=== PATIENT | male | born 1930 | race Caucasian/White ===

== ENCOUNTER 2016-06-09 12:43 | Emergency (ER) | payer OTHER, MEDICARE ==
[~2016-06-09] VITALS: Ht 175.3 cm; Wt 81.6 kg
--- NOTE | 2016-06-09 12:54 | ED AMS/SEIZURE/WEAK/DIZZY ---
History of Present Illness General Chief Complaint: Altered Mental Status Stated Complaint: CONFUSION,POOR PO INTAKE, HX DEMENTIA Source: patient, family (), EMS Exam Limitations: dementia Vital Signs & Intake/Output Vital Signs & Intake/Output Vital Signs Date Time Temp Pulse Resp B/P Pulse O2 O2 Flow FiO2 Ox Delivery Rate 06/09 1500 98.6 57 18 162/77 98 Room Air 06/09 1252 98.6 51 18 145/70 97 Room Air Allergies Coded Allergies: No Known Allergies (06/09/16) Reconcile Medications Amlodipine Besylate 5 MG TABLET 1 TAB PO DAILY HEART (Reported) Cholecalciferol (Vitamin D3) 1,000 UNIT TABLET 1 TAB PO DAILY SUPPLEMENT ( Reported) Finasteride 5 MG TABLET 1 TAB PO DAILY PROSTATE (Reported) Folic Acid 0.8 MG TABLET 1 TAB PO DAILY SUPPLEMENT (Reported) Niacin (Niaspan) 500 MG TAB.ER.24H 1 TAB PO DAILY HEART (Reported) Nitroglycerin (Nitroglycerin Patch) 0.4 MG/HOUR PATCH.TD24 1 PATCH TOP DAILY HEART (Reported) Raymond-3 Fatty Acids/Fish Oil (Fish Oil 1,000 MG Capsule) 340 MG-1,000 MG CAPSULE 1 CAP PO DAILY SUPPLEMENT (Reported) Omeprazole 20 MG CAPSULE.DR 1 CAP PO DAILY GI (Reported) Selenomethionine (Selenium) 200 MCG TABLET 1 TAB PO DAILY SUPPLEMENT ( Reported) Tamsulosin HCl 0.4 MG CAP.ER.24H 1 CAP PO DAILY PROSTATE (Reported) Vitamin B Complex (Balanced B-50) 1 EACH TABLET 1 TAB PO DAILY SUPPLEMENT ( Reported) Warfarin Sodium (Coumadin) 5 MG TABLET 1 TAB PO 1700 BLOOD THINNER (Reported) Triage Nurses Notes Reviewed? yes HPI: This patient is an 85-year-old male with a past medical history including coronary artery disease, thrombocytopenia, and dementia who presented to the emergency department today brought in by ambulance for evaluation of altered mental status and presyncope. The patient is a poor historian at baseline due to his underlying dementia. He reported that he is not in any pain and is offering no complaints. The patient's is at the bedside and reported that they were standing [place] [employer]. She reported, "he was wearing a lot of close and it was really electromedical service engineer there." She reported that he started staring off in the distance and wasn't really answering questions. She reported that people around him noticed and got him a chair to sit down. He did not fall or strike his head. He did not lose consciousness. The patient's reported that she got him a drink of water, thinking maybe his blood sugar was low. However, she did report that he does not have a history of low blood sugar. She reported a similar incident happened last week when he felt dizzy. At that time he did not stare blankly ahead or lose consciousness or strike his head. She reported that he is currently at his baseline mental status. The patient is denying any fevers, chills, chest pain, difficulty breathing, abdominal pain, vomiting, or any other associated symptoms. (DARRON BOBO PA-C) Past History Medical History Any Pertinent Medical History? see below for history Neurological: Alzheimer's disease, dementia Cardiovascular: CAD, CAROTID ARTERY STENOSIS Renal: RENAL CYST Blood Disorders: thrombocytopenia Surgical History Surgical History: CAROTIDENDARTERECTOMY, BYPASS SURGERY, STENT PLACEMENT AND HEART Family History Hx Contributory? No (DARRON BOBO PA-C) Review of Systems Review of Systems Constitutional: Reports: no symptoms. EENTM: Reports: no symptoms. Respiratory: Reports: no symptoms. Cardiovascular: Reports: no symptoms. GI: Reports: no symptoms. Genitourinary: Reports: no symptoms. Musculoskeletal: Reports: no symptoms. Skin: Reports: no symptoms. Neurological/Psychological: Reports: see HPI. All Other Systems: Reviewed and Negative (DARRON BOBO PA-C) Physical Exam Physical Exam General Appearance: well developed/nourished, no apparent distress, alert, awake Comments: Well-developed well-nourished person in no acute distress HEENT: Normal EENT exam, head normocephalic, moist mucous membranes PERRLA bilaterally Neck: Supple, no lymphadenopathy Back: No midline tenderness Cardiovascular: Regular rate and rhythm with no murmurs, rubs, or gallops. No carotid bruits appreciated. No JVD Respiratory: Chest nontender. No respiratory distress. Breath sounds clear to auscultation bilaterally with no wheezes, rales, or rhonchi Abdomen: Soft, nontender and nondistended. Large ventral abdominal hernia appreciated which is easily reducible. Extremity: No edema, no calf tenderness to palpation, normal and equal pulses. Neuro: Alert oriented to person only, cranial nerves II through XII grossly intact. No aphasia. No facial droop. No unilateral weakness Skin: No appreciable rash on exposed skin, skin is warm and dry. Psych: Mood and affect is normal Core Measures ACS in differential dx? Yes CVA/TIA Diagnosis: No Severe Sepsis Present: No Septic Shock Present: No (JERAMIE YAÑEZ,DARRON) Progress Differential Diagnosis: arrythmia, alcohol intoxication, anemia, benign positional vertigo, CVA/stroke, dehydration, drug intoxication, encephalitis, electrolyte imbalance, GI bleed, hypoglycemia, hypoxia, intracranial Hem., intracranial mass/tumor, pneumonia, postural hypotension, presyncope, sepsis, seizure disorder, subarachnoid Hem., UTI/pyelo, vertebrobasilar insuff Plan of Care: Orders Procedure Date/time Status CULTURE,URINE 06/09 1252 Active URINE DRUGS OF ABUSE 06/09 1252 Complete URINALYSIS 06/09 1252 Complete TROPONIN LEVEL 06/09 1252 Complete PROLACTIN 06/09 1252 Complete LACTIC ACID 06/09 1252 Complete COMPREHENSIVE METABOLIC PANEL 06/09 1252 Complete CBC WITHOUT DIFFERENTIAL 06/09 1252 Complete EKG 06/09 1252 Active Laboratory Tests 06/09/16 1552: Lactic Acid Cancelled 06/09/16 1407: Urine Opiates Screen < 100.00, Methadone Screen < 40, Barbiturate Screen < 60, Ur Phencyclidine Scrn < 6.00, Amphetamines Screen < 100, U Benzodiazepines Scrn < 85, Urine Cocaine Screen < 50, Urine Cannabis Screen < 5.00, Urine Color YEL, Urine Clarity CLEAR, Urine pH 6.0, Ur Specific [place] 1.015, Urine Protein 100 H, Urine Ketones NEG, Urine Nitrite NEG, Urine Bilirubin NEG, Urine Urobilinogen 0.2, Ur Leukocyte Esterase NEG, Ur Microscopic SEDIMENT EXAMINED, Urine RBC RARE , Urine WBC RARE, Ur Epithelial Cells RARE, Hyaline Casts RARE H, Granular Casts RARE H, Urine Mucus RARE, Urine Hemoglobin NEG, Urine Glucose NEG 06/09/16 1306: Anion Gap 6, Estimated GFR 52 L, BUN/Creatinine Ratio 21.5, Glucose 99, Lactic Acid 0.9, Calcium 9.0, Total Bilirubin 0.5, AST 23, ALT 23, Alkaline Phosphatase 44, Troponin I 0.01, Total Protein 6.7, Albumin 3.7, Globulin 3.0, Albumin/ Globulin Ratio 1.2, Prolactin 8.2, CBC w Diff NO MAN DIFF REQ, RBC 3.89 L, MCV 96.4 H, MCH 32.7 H, RDW 14.3, MPV 8.4, Gran % 71.9, Lymphocytes % 14.8 L, Monocytes % 9.9 H, Eosinophils % 3.3, Basophils % 0.1, Absolute Granulocytes 3.5, Absolute Lymphocytes 0.7 L, Absolute Monocytes 0.5, Absolute Eosinophils 0.2, Absolute Basophils 0, PUBS MCHC 33.9 Microbiology 06/09 1407 URINE ROUT: Urine Culture - RECD Diagnostic Imaging: Viewed by Me: Radiology Read, CT Scan. Discussed w/RAD: Radiology Read, CT Scan. Radiology Impression: PATIENT: ABRAM PAVON PRESENT AGE: 85 PATIENT ACCOUNT NO: [id number] : 30 LOCATION: [facility] ORDERING PHYSICIAN: DARRON BOBO PA-C SERVICE DATE: 06/09/16 EXAM TYPE: CAT - CT CERV SPINE WO IV CONTRAST; CT HEAD WO IV CONTRAST CT HEAD WITHOUT IV CONTRAST CT CERVICAL SPINE WITHOUT IV CONTRAST INDICATION: Altered mental status. COMPARISON: None available. TECHNIQUE: Multidetector CT acquisitions of the head and cervical spine were obtained without IV contrast. Multiplanar reformats were acquired and utilized for image interpretation. 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 Mineralization within the cerebellar white matter and globus pallidus bilaterally. There is global cerebral volume loss with a mesial temporal lobe predominance. Overall supratentorial ventricular size is greater than sulcal prominence and can be correlated for clinical signs of normal pressure hydrocephalus. Nonspecific extensive hypoattenuation within the supratentorial white matter that may reflect moderate to severe chronic microangiopathy with or without a component of transependymal CSF flow. There is no intracranial hemorrhage, hydrocephalus, extra-axial surface collection, midline shift, or other herniation pattern. Pate to white matter differentiation is diffusely maintained without evidence of an evolved acute territorial infarct. The basilar cisterns are preserved. No significant soft tissue abnormality. No acute osseous abnormality. There is mild mucosal thickening throughout the ethmoid air cells and within the sphenoid sinuses. Mastoid air cells are well-aerated. CERVICAL SPINE: There is grade 1 degenerative anterolisthesis of C5 on C6, C6 on C7, C7 on T1, and T1 on T2. Multilevel facet arthropathy. Disc spaces are preserved. There is no acute fracture and there is no acute subluxation. The craniocervical and atlantoaxial articulations are normal. There is no prevertebral soft tissue swelling. No significant soft tissue abnormality within the neck. Surgical clips adjacent to the left carotid bifurcation. Atherosclerotic calcification at the carotid bifurcations bilaterally. The visualized lung apices are clear. IMPRESSION: 1. No acute intracranial abnormality. Overall supratentorial ventricular size is greater than sulcal prominence and can be correlated for clinical signs of normal pressure hydrocephalus. There is global cerebral volume loss with a mesial temporal lobe predominance. Nonspecific extensive hypoattenuation within the supratentorial white matter that may reflect moderate to severe chronic microangiopathy with or without a component of transependymal CSF flow. 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 2. No acute osseous abnormality within the cervical spine. Multilevel cervical spondylosis. DICTATED BY: DELANO SHARP MD DATE/TIME DICTATED:1348 AIRPLANE ENGINEER:JOSE DAVID DATE/TIME TRANSCRIBED:06/09/161348 CONFIDENTIAL, DO NOT COPY WITHOUT APPROPRIATE AUTHORIZATION. <Electronically signed in Other Vendor System> SIGNED BY: DELANO SHARP MD 06/09/16 2717 CXR Impression: PATIENT: ABRAM PAVON PRESENT AGE: 85 PATIENT ACCOUNT NO: [id number] : 30 LOCATION: [facility] ORDERING PHYSICIAN: DARRON BOBO PA-C SERVICE DATE: 06/09/161252 EXAM TYPE: RAD - XRY-CHEST XRAY, PA AND LATERAL EXAMINATION: XR CHEST CLINICAL INFORMATION: Altered mental status. Evaluate for pneumonia. COMPARISON: None. TECHNIQUE: PA and lateral views of the chest were obtained. FINDINGS: Lungs are hypoinflated and right diaphragm slightly elevated. No acute pulmonary consolidation, interstitial infiltrate or pleural effusion. Cardiac silhouette is normal in size, status post CABG, with intact sternotomy wires in place. Thoracic aorta is calcified. There are old, healed fractures of several left posterolateral ribs. IMPRESSION: No acute cardiopulmonary findings. DICTATED BY: JR SANCHEZ MD DATE/TIME DICTATED:06/09/161417 AIRPLANE ENGINEER:HALE DATE/TIME TRANSCRIBED:06/09/168 CONFIDENTIAL, DO NOT COPY WITHOUT APPROPRIATE AUTHORIZATION. <Electronically signed in Other Vendor System> SIGNED BY: JR SANCHEZ MD 06/09/16 1428 Initial ED EKG: normal axis, normal intervals, normal sinus rhythm, nonspecific ST T wave chg, SINUS BRADYCARDIA, 55 BPM Comments: 06/09/2016 2:57:46 PM: Discussed this patient with Dr. Rosales. No increased white blood cell count. No elevation prolactin. Largely unremarkable CT scan of the head. No evidence of pneumonia on chest x-ray. No evidence of urinary tract infection. Likely presyncopal episode. Will hydrate this patient with fluids, do orthostatic vital signs, and ambulate this patient. If he is back to baseline, he will be stable for discharge home. 06/09/2016 4:46:50 PM: Patient ambulatory at baseline. Liter of IV fluids, has infused. Patient and spouse are looking to go home. Stable for discharge home at this time. Counseled the patient's and the importance of having him follow-up with his primary care physician and bring him back to the emergency department should she have any other concerns. (DARRON BOBO PA-C) Departure Departure Disposition: HOME OR SELF CARE Condition: Stable Clinical Impression Primary Impression: Pre-syncope Additional Instructions: Take all previously prescribed medications as directed. Be sure to stay hydrated with lots of fluids. Call to make a follow-up appointment with your primary care physician. Return to the emergency department for any worsening symptoms or concerns. Departure Forms: Customer Survey General Discharge Information (DARRON BOBO PA-C) PA/[employer] Co-Sign Statement Statement: ED Attending supervision documentation- [x] I saw and evaluated the patient. I have also reviewed all the pertinent lab results and diagnostic results. I agree with the findings and the plan of care as documented in the PA's/[employer]'s documentation. [x] I have reviewed the ED Record and agree with the PA's/[employer]'s documentation. [] Additions or exceptions (if any) to the PAs/[employer]'s note and plan are summarized below: [] (JOSE JOHN,KAN)
[2016-06-09 13:21] LABS: ABSOLUTE BASOPHIL COUNT 0 /CUMM (0.0-0.2); ABSOLUTE EOSINOPHIL COUNT 0.2 /CUMM (0.0-0.7); ABSOLUTE GRANULOCYTE CT 3.5 /CUMM (1.4-6.5); ABSOLUTE LYMPH COUNT 0.7 /CUMM (1.2-3.4); ABSOLUTE MONOCYTE COUNT 0.5 /CUMM (0.10-0.60); BASOPHIL % 0.1 % (0.0-2.0); EOSINOPHIL % 3.3 % (0-5); GRANULOCYTE % 71.9 % (42.2-75.2); HEMATOCRIT 37.5 % (42-52); MEAN CORPUSCULAR HGB 32.7 PG (27.0-31.0); MEAN CORPUSCULAR HGB CONC 33.9 G/DL (33.0-37.0); MEAN CORPUSCULAR VOLUME 96.4 FL (80.0-94.0); MEAN PLATELET VOLUME 8.4 FL (7.4-10.4); PLATELET COUNT 127 /CUMM (130-400); RBC DISTRIBUTION WIDTH 14.3 % (11.5-14.5); RED BLOOD CELL CT 3.89 /CUMM (4.70-6.10); WHITE BLOOD CELL COUNT 4.8 /CUMM (4.8-10.8)
--- NOTE | 2016-06-09 14:07 | CT SCAN REPORT ---
CT HEAD WITHOUT IV CONTRAST CT CERVICAL SPINE WITHOUT IV CONTRAST INDICATION: Altered mental status. COMPARISON: None available. TECHNIQUE: Multidetector CT acquisitions of the head and cervical spine were obtained without IV contrast. Multiplanar reformats were acquired and utilized for image interpretation. 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 Mineralization within the cerebellar white matter and globus pallidus bilaterally. There is global cerebral volume loss with a mesial temporal lobe predominance. Overall supratentorial ventricular size is greater than sulcal prominence and can be correlated for clinical signs of normal pressure hydrocephalus. Nonspecific extensive hypoattenuation within the supratentorial white matter that may reflect moderate to severe chronic microangiopathy with or without a component of transependymal CSF flow. There is no intracranial hemorrhage, hydrocephalus, extra-axial surface collection, midline shift, or other herniation pattern. Pate to white matter differentiation is diffusely maintained without evidence of an evolved acute territorial infarct. The basilar cisterns are preserved. No significant soft tissue abnormality. No acute osseous abnormality. There is mild mucosal thickening throughout the ethmoid air cells and within the sphenoid sinuses. Mastoid air cells are well-aerated. CERVICAL SPINE: There is grade 1 degenerative anterolisthesis of C5 on C6, C6 on C7, C7 on T1, and T1 on T2. Multilevel facet arthropathy. Disc spaces are preserved. There is no acute fracture and there is no acute subluxation. The craniocervical and atlantoaxial articulations are normal. There is no prevertebral soft tissue swelling. No significant soft tissue abnormality within the neck. Surgical clips adjacent to the left carotid bifurcation. Atherosclerotic calcification at the carotid bifurcations bilaterally. The visualized lung apices are clear. IMPRESSION: 1. No acute intracranial abnormality. Overall supratentorial ventricular size is greater than sulcal prominence and can be correlated for clinical signs of normal pressure hydrocephalus. There is global cerebral volume loss with a mesial temporal lobe predominance. Nonspecific extensive hypoattenuation within the supratentorial white matter that may reflect moderate to severe chronic microangiopathy with or without a component of transependymal CSF flow. 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 2. No acute osseous abnormality within the cervical spine. Multilevel cervical spondylosis.
--- NOTE | 2016-06-09 14:23 | RADIOLOGY REPORT ---
EXAMINATION: XR CHEST CLINICAL INFORMATION: Altered mental status. Evaluate for pneumonia. COMPARISON: None. TECHNIQUE: PA and lateral views of the chest were obtained. FINDINGS: Lungs are hypoinflated and right diaphragm slightly elevated. No acute pulmonary consolidation, interstitial infiltrate or pleural effusion. Cardiac silhouette is normal in size, status post CABG, with intact sternotomy wires in place. Thoracic aorta is calcified. There are old, healed fractures of several left posterolateral ribs. IMPRESSION: No acute cardiopulmonary findings.
[2016-06-09] MEDS ORDERED: COUMADIN5 M2 PO (15:39)
[2016-06-09] MEDS ORDERED: TAMSULOSIN HCL0.4 M1 PO (15:40)
[2016-06-09] MEDS ORDERED: FINASTERIDE5 M1 PO (15:40)
[2016-06-09] MEDS ORDERED: OMEPRAZOLE20 M2 PO (15:40)
[2016-06-09] MEDS ORDERED: AMLODIPINE BESYL5 M1 PO (15:40)
[2016-06-09] MEDS ORDERED: NIASPAN500 M1 PO (15:40)
[2016-06-09] MEDS ORDERED: VITAMIN D31000 UNI2 PO (15:41)
[2016-06-09] MEDS ORDERED: NITROGLYCERIN1 EACH TOP (15:41)
[2016-06-09] MEDS ORDERED: FISH OIL 1,0001 EACH PO (15:41)
[2016-06-09] MEDS ORDERED: BALANCED B-501 EAC1 PO (15:42)
[2016-06-09] MEDS ORDERED: FOLIC ACID0.8 M2 PO (15:42)
[2016-06-09] MEDS ORDERED: SELENIUM200 MC1 PO (15:43)
[2016-06-09 17:06] VITALS: BP 146/85
== END 2016-06-09 17:06 ==
LOC: ERH 12:43
PROVIDERS: Physician Assistant
DX: R55 Syncope and collapse (principal); F03.90 Unspecified dementia, unspecified severity, without behavioral disturbance, psychotic disturbance, mood disturbance, and anxiety
CPT/HCPCS: 80307; 81001; 87086; 93005; 93010